=== PATIENT | male | born 1950 | race Caucasian/White ===

== ENCOUNTER 2018-09-05 06:39 | Inpatient (IN) | payer MEDICARE | END 2018-09-07 16:45 | disposition home or self-care (01) | LOC: DAHIP 06:39 → 4AH 12:05 | PROC: 0SRC0J9 Replacement of Right Knee Joint with Synthetic Substitute, Cemented, Open Approach (ICD-10-PCS; principal; 2018-09-05 08:43) | DX: M17.11 Unilateral primary osteoarthritis, right knee (principal) ==

== ENCOUNTER → 2021-06-15 | Outpatient (CLI) | payer MEDICARE ==
[~2021-06-15] MED LIST: ARIP5TAB56 PO; DESV100T16 PO; GARL1000 PO; LISI1TAB51 PO; OMEG-116 PO; PRAM0.258 PO; TRAZ-187 PO; UBID100C10 PO; VITA1CAP PO
== END | disposition home or self-care (01) ==
LOC: RAH 12:52
PROVIDERS: ATTEND Orthopaedic Surgery
DX: M19.011 Primary osteoarthritis, right shoulder (principal)
CPT/HCPCS: 73200

== ENCOUNTER → 2024-09-15 | Outpatient (CLI) | payer MEDICARE ==
[~2024-09-15] MED LIST changes: +ARIP5TAB51 PO; -ARIP5TAB56 PO; -GARL1000 PO; +GARL10002 PO
--- NOTE | 2024-09-15 16:19 | HMCIMG ---
US SOFT TISSUE GROIN REASON: INGUINAL PAIN. COMPARISON: None TECHNIQUE: Bilateral groin ultrasound study was performed. FINDINGS: No evidence of cystic or hypoechoic mass is seen. IMPRESSION: No evidence of cystic or hypoechoic mass is seen of either groin.
== END | disposition home or self-care (01) ==
LOC: RAH 09:32
PROVIDERS: ATTEND Internal Medicine Critical Care Medicine
DX: R10.2 Pelvic and perineal pain (principal)
CPT/HCPCS: 76882